=== PATIENT | female | born 1935 | race African-American/Black ===

== ENCOUNTER → 2021-04-10 | Outpatient (CLI) | payer MEDICARE, BC ==
[~2021-04-10] MED LIST: AMLO10TA80 PO; APIX5TAB PO; FENTANYL CITRATE/PF 50MCG/ML 2ML VIAL ONE; FURO20TA4 PO; ISOS60TA76 PO; LOSA25TA26 PO; MIDAZOLAM HCL 2 MG/2 ML VIAL ONE; PANT20TA17 PO; PREG75CA PO
== END | disposition home or self-care (01) ==
LOC: LAB 09:01
PROVIDERS: ATTEND Ophthalmology
DX: Z01.812 Encounter for preprocedural laboratory examination (principal); Z20.822 Contact with and (suspected) exposure to COVID-19
CPT/HCPCS: 87426

== ENCOUNTER 2021-04-11 07:54 | Day surgery (SDC) | payer MEDICARE, BC ==
[~2021-04-11] VITALS: Ht 154.9 cm; Wt 83.9 kg
[~2021-04-11 07:54] MED LIST changes: -FENTANYL CITRATE/PF 50MCG/ML 2ML VIAL ONE; +LACTATED RINGERS 1,000 ML IV SCH; -MIDAZOLAM HCL 2 MG/2 ML VIAL ONE; -PREG75CA PO
[2021-04-11] MEDS ORDERED: PHENYLEPHRINE HCL 10% OPHTH DROPS 5ML LEFTEYE ONE (08:00)
[2021-04-11] MEDS ORDERED: TROPICAMIDE 1% OPHTH DROPS 15ML LEFTEYE ONE (08:00)
[2021-04-11] MEDS ORDERED: CYCLOPENTOLATE HCL 1% OPHTH DROPS 2ML LEFTEYE ONE (08:00)
[2021-04-11] MEDS ORDERED: HYALURONATE SODIUM 10 MG/ML 0.55ML SYRINGE IO ONE ×2 (08:48→09:47)
[2021-04-11] MEDS ORDERED: BALANCED SALT IRRIG SOLN COMB1 500ML OP NR (09:00)
[2021-04-11] MEDS ORDERED: MEPERIDINE HCL/PF 25MG/ML CPJ IV PRN (09:15)
[2021-04-11] MEDS ORDERED: ONDANSETRON HCL 4MG/2ML INJ IV PRN (09:15)
[2021-04-11] MEDS ORDERED: LABETALOL 5MG/ML SYR 20 MG/4 ML SYRINGE IV PRN (09:15)
[2021-04-11] MEDS ORDERED: HYDROMORPHONE HCL/PF 2MG/ML CPJ IV PRN (09:15)
[2021-04-11] MEDS ORDERED: TRYPAN BLUE 0.5 ML DISP.SYRIN IO ONE (09:36)
[2021-04-11] MEDS ORDERED: NEO/POLYMYX B SULF/DEXAMETH OPHTH OINT 3.5GM ONE (09:53)
[2021-04-11] MEDS ORDERED: BALANCED SALT IRRIG SOLN 15ML ONE (09:53)
[2021-04-11] MEDS ORDERED: LIDOCAINE HCL/PF 2% 20 MG/ML 10ML VIAL ONE (09:53)
[2021-04-11] MEDS ORDERED: CIPROFLOXACIN 0.3% OPHTH SOLN 2.5ML ONE (09:53)
[2021-04-11] MEDS ORDERED: CYCLOPENTOLATE HCL 1% OPHTH DROPS 2ML ONE (09:53)
[2021-04-11] MEDS ORDERED: TETRACAINE 0.5% OPHTH DROPS 4ML ONE (09:53)
[2021-04-11] MEDS ORDERED: PHENYLEPHRINE HCL 2.5% OPHTH DROPS 2ML ONE (09:53)
[2021-04-11] MEDS ORDERED: TROPICAMIDE 1% OPHTH DROPS 15ML ONE (09:53)
[2021-04-11] MEDS ORDERED: PREDNISOLONE ACETATE 1% OPHTH DROPS 5ML ONE (09:53)
[2021-04-11] MEDS ORDERED: IBUPROFEN 600MG TABLET PO NR (12:30)
== END 2021-04-11 12:45 | disposition home or self-care (01) ==
LOC: OR 07:54
PROVIDERS: ATTEND Ophthalmology
DX: H25.89 Other age-related cataract (principal); I10 Essential (primary) hypertension; I25.10 Atherosclerotic heart disease of native coronary artery without angina pectoris; I25.2 Old myocardial infarction; M19.90 Unspecified osteoarthritis, unspecified site; I48.91 Unspecified atrial fibrillation; E78.5 Hyperlipidemia, unspecified; K21.9 Gastro-esophageal reflux disease without esophagitis; Z79.899 Other long term (current) drug therapy; Z98.890 Other specified postprocedural states; Z88.8 Allergy status to other drugs, medicaments and biological substances
CPT/HCPCS: 66984; J2250; J3010; J3490; Q9957; V2632